=== PATIENT | male | born 1955 | race African-American/Black ===

== ENCOUNTER 2017-10-16 11:24 | Emergency (ER) | payer SELFPAY ==
[~2017-10-16] VITALS: Ht 170.2 cm; Wt 86.6 kg
[2017-10-16 11:32] VITALS: BP 125/68
--- NOTE | 2017-10-16 11:46 | NUR ---
JAVIER LIRA AT BEDSIDE FOR EVAL.
== END 2017-10-16 12:08 | disposition home or self-care (01) ==
LOC: ER 11:34
DX: M54.2 Cervicalgia (principal); M54.5 Low back pain; I10 Essential (primary) hypertension; E03.9 Hypothyroidism, unspecified; V29.1 Motorcycle passenger injured in collision with other and unspecified motor vehicles in nontraffic accident; Y93.89 Activity, other specified; Y92.410 Unspecified street and highway as the place of occurrence of the external cause; Y99.8 Other external cause status
CPT/HCPCS: 99283; A4606; Z7610

== ENCOUNTER 2024-06-01 19:35 | Emergency (ER) | payer OTHER, MEDICAID ==
[~2024-06-01] VITALS: Ht 170.2 cm; Wt 81.6 kg
[2024-06-01] MEDS: CEFEPIME 1 GM in IV D5W 50 ML IV ONE (20:00)
[2024-06-01] MEDS: IV NS 0.9% 1,000 ML BAG IV ONE (20:00)
[2024-06-01] MEDS: ONDANSETRON HCL/PF - ER 4 MG/2 ML VIAL IV ONE (20:00)
[2024-06-01] MEDS ORDERED: ONDANSETRON HCL/PF 4 MG/2 ML VIAL ONE (20:09)
[2024-06-01] MEDS ORDERED: VANCOMYCIN 1 GM /D5W 250 ML PB IV ONE (20:10)
[2024-06-01] MEDS ORDERED: CEFEPIME 1 GM VIAL ONE (20:10)
[2024-06-01] MEDS ORDERED: ACETAMINOPHEN ES 500 MG TABLET ONE (20:10)
[2024-06-01] MEDS: ACETAMINOPHEN ES 500 MG TABLET PO ONE (20:23)
[2024-06-01 20:24] LABS: BASOPHILS % (AUTO) 0.3 % (0.0-2.0); HEMATOCRIT 43 % (39-51); HEMOGLOBIN 14.4 g/dL (13.5-17.5); LYMPHOCYTES # (AUTO) 0.3 K/uL (0.8-4.8); LYMPHOCYTES % (AUTO) 3.3 % (20.0-44.0); MEAN CORPUSCULAR HEMOGLOBIN 28 PG (26.0-33.0); MEAN CORPUSCULAR HGB CONC 34 g/dl (31.0-36.0); MEAN CORPUSCULAR VOLUME 83 fL (80-96); MONOCYTES # (AUTO) 0.4 K/uL (0.1-1.30); MONOCYTES % (AUTO) 4.7 % (2.0-12.0); NEUTROPHILS # (AUTO) 7.2 K/uL (1.8-8.9); NEUTROPHILS % (AUTO) 91.7 % (43.0-81.0); PLATELET COUNT (AUTO) 60 K/uL (150-450); RED BLOOD CELL COUNT(AUTO) 5.18 MIL/uL (4.5-6.0); RED CELL DISTRIBUTION WIDTH 14.2 % (11.5-15.0); WHITE BLOOD COUNT (AUTO) 7.9 K/uL (4.3-11.0)
[2024-06-01 20:36] LABS: INR 1.47 (0.91-1.10); PARTIAL THROMBOPLASTIN TIME 30.4 SEC (24.3-34.3); PROTHROMBIN TIME 15.2 SECS (9.2-11.1)
[2024-06-01] MEDS: VANCOMYCIN 1 GM in IV D5W 250 ML IV ONE (20:37)
[2024-06-01 21:11] LABS: CALCIUM, SERUM 8.8 mg/dL (8.5-10.1); CARBON DIOXIDE 25 mmol/L (21-32); CHLORIDE 97 mmol/L (98-107); CREATININE 1.8 mg/dL (0.6-1.3); GLUCOSE 186 mg/dL (74-106); POTASSIUM 3.8 mmol/L (3.5-5.1); SODIUM SERUM 134 mmol/L (136-145); UREA NITROGEN, BLOOD 19 mg/dL (7-18)
[2024-06-01 21:14] LABS: APPEARANCE,URINE CLEAR (CLEAR); BILIRUBIN,URINE 1+ (NEGATIVE); BLOOD, URINE 3+ Ery/uL (NEGATIVE); COLOR,URINE YELLOW (YELLOW); KETONES,URINE NEGATIVE (NEGATIVE); LEUKOCYTE ESTERASE ,URINE NEGATIVE (NEGATIVE); NITRITE, URINE NEGATIVE (NEGATIVE); PH,URINE 5.5 (5.0-8.0); PROTEIN,URINE 3+ mg/dl (NEGATIVE); UGLUCOSE NEGATIVE (NEGATIVE)
[2024-06-01 21:14] LABS: LACTIC ACID 2.3 mmol/L (0.4-2.0)
[2024-06-01 21:18] LABS: ALANINE AMINOTRANSFERASE 42 U/L (12-78); ALBUMIN 2.9 g/dL (3.4-5.0); ALKALINE PHOSPHATASE 58 U/L (46-116); ASPARTATE AMINOTRANSFERASE 48 U/L (15-37); BILIRUBIN,TOTAL 1.5 mg/dL (0.2-1.0)
[2024-06-01] MEDS ORDERED: IV NS 0.9% 250 ML IV ONE (21:26)
[2024-06-01] MEDS ORDERED: IOHEXOL-300 100 ML VIAL IV ONE (21:26)
[2024-06-01] MEDS ORDERED: CT SWABBABLE VALVE TRANS SET 1 EA INFUS.SET MC ONE (21:26)
[2024-06-01 22:04] LABS: ADD URINE CULTURE YES; BACTERIA,URINE 2+ /HPF (None Seen); SQUAMOUS EPITHELIAL CELL,UR None Seen /HPF (None Seen)
[2024-06-01 22:05] LABS: MUCUS,URINE Many /LPF (None Seen)
[2024-06-02 00:21] LABS: LYMPHOCYTES % (MANUAL) 3 % (16-48); MONOCYTES % (MANUAL) 6 % (0-11.0); NEUTROPHILS % (MANUAL) 91 (42-76); PLATELET ESTIMATE DECRE
[2024-06-02] MEDS ORDERED: ACETAMINOPHEN ES 500 MG TABLET ONE (04:09)
[2024-06-02 04:14] VITALS: BP 157/77; TEMP 102.2; O2SAT 95
[2024-06-02] MEDS: ACETAMINOPHEN ES 500 MG TABLET PO ONE (04:14)
== END 2024-06-02 04:36 | disposition short-term general hospital (02) ==
LOC: ER 19:46
DX: A41.9 Sepsis, unspecified organism (principal); R65.20 Severe sepsis without septic shock; R50.9 Fever, unspecified; R00.0 Tachycardia, unspecified; R11.2 Nausea with vomiting, unspecified; R53.1 Weakness; Z20.822 Contact with and (suspected) exposure to COVID-19
CPT/HCPCS: 36415; 71045-TC; 80048-TC; 80076-TC; 81001; 83605-TC; 83880; 85025-TC; 85730-TC; 87040-TC; 87086-TC; A4223; J0692; J2405; J3370; J7040; J7050; J7060; Q9967